=== PATIENT | female | born 1995 | race Caucasian/White ===

== ENCOUNTER 2018-12-31 18:22 | Emergency (ER) | payer SELFPAY ==
[~2018-12-31] VITALS: Ht 162.6 cm; Wt 54.4 kg
[2018-12-31 18:39] VITALS: BP 116/79
--- OUTSIDE RECORDS SUMMARY | 2018-12-31 18:46 | XMS REPORT | Continuity of Care Document ---
Author Author Beatriz [facility] Floridatangela Lilly [facility] Address Unknown Phone Unavailable Support Name Relationship Address Phone SUSHMA LYNNE M.D. Caregiver [address] [place] [address] Unavailable ROBEREDWINA MURCIAWE A D.O. Caregiver [address] [place] [address] Unavailable ROBER, SKINNY A D.O. Caregiver [address] [place] [address] Unavailable KEVIN BOOGIE Next Of Kin [address] [place], [place] [id number] Care Team Providers Care Occ Therapy Asst Name Role Phone SUSHMA LYNNE M.D. PCP Insurance Providers Guarantor Elan Boogie Address [address] [place] [address] Payer [employer] Policy Number [id number] Subscriber's Name Vincenzo Castle Relationship 01 Self / Same As Patient Effective Date 16 Advance Directives Directive Response Recorded Date/Time Patient Resuscitation Status Full Code 11/12/16 3:30am Chief Complaint and Reason for Visit Chief Complaint INDUCTION Reason for Visit Screening, , for anatomic survey Problems Active Problems Medical Problem Onset Date Status Abnormality on screening test Unknown Encounter for supervision of normal first in third trimester Unknown Encounter for supervision of normal Unknown Initial obstetric visit in third trimester Unknown Insufficient antepartum care Unknown Intrauterine in teenager Unknown Noncompliant patient in third trimester Unknown Polyhydramnios in third trimester Unknown Post-dates Unknown care in third trimester Unknown Screening for STD (sexually transmitted disease) Unknown Screening, , for anatomic survey Unknown Medications Current Home Medications Medication Dose Units Route Directions Days Qty Instructions Start Date Acetaminophen/Codeine (Tylenol #3) 300-30 Mg Tab 1-2 Ea Oral Every 4 Hours as needed for Pain 24 Tablet 11/13/16 Docusate Sodium (Colace) 100 Mg Cap 100 Mg Oral Twice A Day for Constipation 30 Days 60 Capsule 11/13/16 Ferrous Sulfate 325 Mg Tab 325 Mg Oral Twice A Day for Iron Suppliment 90 Days 180 Tablet 10/01/16 Vit W/ Ferrous Fumara () Tab 1 Tab Oral Daily Past Home Medications Medication Directions Ordered Status Nitrofurantoin Monohyd Macro (Macrobid) 100 Mg Cap, 100 Mg Oral Twice A Day for Bacteriuria 10/30/16 Discontinued Social History Social History Problem Response Recorded Date/Time Onset Date Status Hx Alcohol Use No 11/12/2016 12:16am Not Applicable Not Applicable Hx Substance Use No 09/30/2016 10:34am Not Applicable Not Applicable Smoking Status Current every day smoker 11/12/2016 12:04am Not Applicable Not Applicable Query Response Start Date Stop Date Smoking Status Current every day smoker Hospital Discharge Instructions Medication Information Medication information Medications taken today: Iron- 8:21 am Ibuprofen- 8:21 am Tylenol #3- 3:36 pm Medication Instructions: Iron 325mg 1 tablet daily Ibuprofen 800mg 1 tablet by mouth every 8 hours as needed for cramps Tylenol #3 1-2 tablets by mouth every 4 hours as needed for pain Discharge Instructions Nursing Instructions Follow up Appointment #1 Call for Appointment: No Scheduled Date: 11/20/16 Scheduled Time: 12:00pm Diet: As Tolerated Activity: As Tolerated Plan of Care Discharge Date 11/13/16 4:32pm Disposition 01 HOME, SELF-CARE Instructions/Education Provided OBG Prescriptions See Medication Section Care Plan and Goals See Discharge Instructions Section Functional Status Query Response Date Recorded Toileting Ability/Staff Support Independ/No setup help November 13, 2016 10:00am Oral Care Ability/Staff Support Activity did not occur November 13, 2016 10:00am Upper Body Dressing Ability/Staff Support Independ/No setup help November 13, 2016 10:00am Lower Body Dressing Ability/Staff Support Independ/No setup help November 13, 2016 10:00am Allergies, Adverse Reactions, Alerts No known allergies. Immunizations Immunization Event Date Type Not Given Reason Dose Number Lot Number Supervisor Dials Influenza, IM, quadrivalent, pres free,=>3yr 10/01/16 Administered 1 MMR 11/13/16 Administered 1 [id number] [employer] [facility] [employer] Pneumococcal polysaccharide PPV23 11/13/16 Administered 1 [id number] [facility] Tetanus/Diphtheria/Pertussis (age >=7) 10/01/16 Administered 1 Query Response on File Recorded Date/Time Pneumonia Vaccine Received No 11/12/16 12:04am Vital Signs Acute Vital Signs Vital Response Date/Time Blood Pressure 103/63 mm Hg 11/13/2016 4:00pm Blood Pressure Mean 77 mm Hg 11/12/2016 5:00am Blood Pressure Mean 76 mm Hg 11/13/2016 4:00pm Temperature (Fahrenheit) 97.8 degrees F (96.0 - 99.9) 11/13/2016 4:00pm Temperature (Calculated Celsius) 36.02481 degrees C 11/13/2016 4:00pm Temperature (Calculated Celsius) 37.77975 degrees C (36.4 - 37.5) 11/12/2016 5:00am Temperature (Fahrenheit) 98.6 degrees F (96.0 - 99.9) 11/12/2016 5:00am Temperature Source Oral 11/13/2016 4:00pm Pulse Pulse Rate (adult) 81 bpm (60 - 100) 11/13/2016 4:00pm Pulse Rate (adult) 90 bpm (60 - 100) 11/12/2016 5:00am Respiratory Rate 18 breaths per minute (10 - 20) 11/13/2016 4:00pm Respiratory Rate 16 bpm (10 - 20) 11/12/2016 4:15am Height (Feet) 5 ft 11/12/2016 12:16am Height (Inches) 4.0 in. 11/12/2016 12:16am Weight (Pounds) 144.0 lbs 11/12/2016 12:16am Height 5 ft 4 in 11/12/2016 12:16am Weight 144 lb 11/12/2016 12:16am Body Mass Index 24.7 kg/m^2 11/12/2016 12:16am Ambulatory Vital Signs Vital Response Date/Time Height 5 ft 3.750 in 11/06/2016 3:28pm Weight 139 lbs 11/06/2016 3:28pm Blood Pressure, Sitting, Left Arm 111/70 mm Hg 11/06/2016 3:28pm Pulse Rate 81 bpm 11/06/2016 3:28pm Body Surface Area 1.69 m2 11/06/2016 3:28pm Body Mass Index 24.0 kg/m2 11/06/2016 3:28pm Pulse Oximetry Pulse Oximetry 11/06/2016 3:28pm Results Laboratory Results Test Name Result Units Flags Reference Collection Date/Time Result Date/ Time Comments Urine WBC Clumps 0-1 /hpf NONE 09/30/2016 8:08am 09/30/2016 8:48am Urine Amorphous Sediment 1+ 09/30/2016 8:08am 09/30/2016 8:48am Rubella Antibody, Quantitative 12.7 IU/ml L 15-500 09/30/2016 8:08am 11:32am INTERPRETATION: <10 IU/ml INDICATES LACK OF IMMUNE STATUS. 10 - 15 IU/ml INDICATES IMMUNE STATUS IS INDETERMINANT. >15 IU/ml INDICATES IMMUNITY. HIV-1 Antibody NEGATIVE NEGATIVE 09/30/2016 8:08am 09/30/2016 8:55am Hepatitis B Surface Antigen Negative Negative 09/30/2016 8:08am 09/30 10:43pm Hepatitis B Surface Antigen performed at [facility] Reference Lab, [address] [place] [address] Cow Tender Jonathan Brown DO Rapid Plasma Reagin Non-reactive Non-reactiv 09/30/2016 8:08am 2015 11:25pm RPR performed at [facility] Reference Lab, [address] [place] [address] Cow Tender Jonathan Brown DO Fasting Glucose 85 mg/dL 65-115 10/06/2016 8:35am 10/06/2016 8:58am Glucose 1 Hour 159 mg/dL 10/06/2016 10:02am 10/06/2016 10:34am Glucose 2 Hour 144 mg/dL 10/06/2016 11:01am 10/06/2016 11:52am Glucose 3 Hour 103 mg/dL 10/06/2016 11:58am 10/06/2016 12:21pm Urine Fasting Glucose NEGATIVE mg/dL NEGATIVE 10/06/2016 8:38am 2016 9:03am THIS PATIENT ALSO HAS: 3+ LE(LEUKOCYTE ESTERASE) AND TRACE BLOOD SUGGESTIVE OF A UTI Urine Glucose 1 Hour NEGATIVE mg/ml NEGATIVE 10/06/2016 10:02am 2016 10:33am THIS PATIENT HAS: CLOUDY URINE, 3+ LE AND TRACE BLOOD SUGGESTIVE OF A UTI, SHOULD FOLLOW WITH A REGUAR UA AND CULTURE/SENSITIVITY. Urine Glucose 2 Hour TRACE mg/ml NEGATIVE 10/06/2016 11:10am 2016 11:59am LE=3+ BLOOD=TRACE Urine Glucose 3 Hour TRACE mg/ml NEGATIVE 10/06/2016 11:59am 2016 12:27pm Urine RBC 1-3 /hpf H NONE 10/23/2016 4:08pm 10/23/2016 6:03pm Urine WBC 10-25 /hpf H NONE 10/23/2016 4:08pm 10/23/2016 6:03pm THIS SPECIMEN MEETS MEDICAL STAFF CRITERIA FOR A URINE CULTURE. A CULTURE HAS BEEN SET. Urine Epithelial Cells >100 /lpf 10/23/2016 4:08pm 10/23/2016 6:03pm CLUE CELLS OBSERVED Urine Bacteria 2+ /hpf H NONE 10/23/2016 4:08pm 10/23/2016 6:03pm THIS SPECIMEN MEETS MEDICAL STAFF CRITERIA FOR A URINE CULTURE. A CULTURE HAS BEEN SET. Membranes Rupture NEGATIVE 11/06/2016 4:25pm 11/06/2016 4: 40pm White Blood Count 12.8 K/uL H 5.0-10.0 11/11/2016 2:30pm 11/11/2016 3: 36pm Red Blood Count 3.31 M/uL L 4.20-5.40 11/11/2016 2:30pm 11/11/2016 3: 36pm Hemoglobin 9.5 g/dL L 12.0-16.0 11/12/2016 1:40pm 11/12/2016 2:08pm Hematocrit 28.3 % L 38.0-47.0 11/12/2016 1:40pm 11/12/2016 2:08pm Mean Corpuscular Volume 90.9 fL 82.0-100.0 11/11/2016 2:30pm 2016 3:36pm Mean Corpuscular Hemoglobin 31.1 pg 26.0-33.0 11/11/2016 2:30pm 2016 3:36pm Mean Corpuscular Hemoglobin Concent 34.2 g/dL 31.0-36.0 11/11/2016 2: 30pm 11/11/2016 3:36pm Red Cell Distribution Width 13.8 % 11.5-14.5 11/11/2016 2:30pm 2016 3:36pm RDW Standard Deviation 46.0 fL 36.4-46.3 11/11/2016 2:30pm 11/11/2016 3 :36pm Platelet Count 153 K/uL 130-400 11/11/2016 2:30pm 11/11/2016 3:36pm Mean Platelet Volume 12.7 fL H 7.0-11.0 11/11/2016 2:30pm 11/11/2016 3: 36pm Neutrophils (%) (Auto) 82.8 % H 42.0-75.0 11/11/2016 2:30pm 11/11/2016 3 :36pm Lymphocytes (%) (Auto) 7.8 % L 16.0-44.0 11/11/2016 2:30pm 11/11/2016 3: 36pm Monocytes (%) (Auto) 7.2 % 2.0-9.0 11/11/2016 2:30pm 11/11/2016 3:36pm Eosinophils (%) (Auto) 1.0 % 0-7.0 11/11/2016 2:30pm 11/11/2016 3:36pm Basophils (%) (Auto) 0.3 % 0-1 11/11/2016 2:30pm 11/11/2016 3:36pm Immature Granulocyte % (Auto) 0.9 % H 0-0.5 11/11/2016 2:30pm 2016 3:36pm Nucleated Red Blood Cells % 0.0 /100WBC 0-0 11/11/2016 2:30pm 2016 3:36pm Neutrophils # (Auto) 10.6 K/uL H 1.9-8.0 11/11/2016 2:30pm 11/11/2016 3: 36pm Lymphocytes # (Auto) 1.0 K/uL 0.9-5.2 11/11/2016 2:30pm 11/11/2016 3: 36pm Monocytes # (Auto) 0.9 K/uL 0.16-1.0 11/11/2016 2:30pm 11/11/2016 3: 36pm Eosinophils # (Auto) 0.1 K/uL 0-0.8 11/11/2016 2:30pm 11/11/2016 3: 36pm Basophils # (Auto) 0.0 K/uL 0-0.2 11/11/2016 2:30pm 11/11/2016 3:36pm Immature Granulocyte # (Auto) 0.12 K/uL 0-0.40 11/11/2016 2:30pm 2016 3:36pm Nucleated Red Blood Cells # 0.00 K/uL 0.0-0.012 11/11/2016 2:30pm 11/11 3:36pm Urine Color YELLOW 11/11/2016 3:00pm 11/11/2016 4:18pm Urine Appearance HAZY 11/11/2016 3:00pm 11/11/2016 4:18pm Urine Glucose (UA) NEGATIVE NEGATIVE 11/11/2016 3:00pm 11/11/2016 4: 18pm Urine Bilirubin NEGATIVE NEGATIVE 11/11/2016 3:00pm 11/11/2016 4: 18pm Urine Ketones NEGATIVE NEGATIVE 11/11/2016 3:00pm 11/11/2016 4:18pm Urine Specific [place] <=1.005 1.005-1.030 11/11/2016 3:00pm 2016 4:18pm Urine Occult Blood NEGATIVE NEGATIVE 11/11/2016 3:00pm 11/11/2016 4: 18pm Urine pH 7.0 4.5-8.0 11/11/2016 3:00pm 11/11/2016 4:18pm Urine Protein NEGATIVE NEGATIVE 11/11/2016 3:00pm 11/11/2016 4:18pm Urine Urobilinogen 0.2 E.U./dL 0.2-1.0 11/11/2016 3:00pm 11/11/2016 4: 18pm Urine Nitrate NEGATIVE NEGATIVE 11/11/2016 3:00pm 11/11/2016 4:18pm Urine Leukocyte Esterase 1+ H NEGATIVE 11/11/2016 3:00pm 11/11/2016 4: 18pm DOA COLLECTION DOA COLLECTION 11/11/2016 3:00pm 11/12/2016 4:07pm Urine Amphetamines Screen Negative NEGATIVE 11/11/2016 3:00pm 2016 4:18pm Urine Methamphetamines Screen Negative NEGATIVE 11/11/2016 3:00pm 05/2017 4:18pm Urine Barbiturates Screen Negative NEGATIVE 11/11/2016 3:00pm 2016 4:18pm Urine Benzodiazepines Screen Negative NEGATIVE 11/11/2016 3:00pm 05/2017 4:18pm Urine Cocaine Screen Negative NEGATIVE 11/11/2016 3:00pm 11/11/2016 4 :18pm Urine Methadone Screen Negative NEGATIVE 11/11/2016 3:00pm 2016 4:18pm Urine Opiates Screen Negative NEGATIVE 11/11/2016 3:00pm 11/11/2016 4 :18pm Urine Phencyclidine Screen Negative NEGATIVE 11/11/2016 3:00pm 2016 4:18pm Urine Propoxyphene Screen Negative NEGATIVE 11/11/2016 3:00pm 2016 4:18pm Ur Tetrahydrocannabinol (THC) Scrn Negative NEGATIVE 11/11/2016 3: 00pm 11/11/2016 4:18pm Ur Tricyclic Antidepressants Screen Negative NEGATIVE 11/11/2016 3: 00pm 11/11/2016 4:18pm Amphetamine Level SEE SEPARATE REPORT 11/11/2016 2:30pm 11/12/2016 3:30am Cocaine & Metabolite Level SEE SEPARATE REPORT 11/11/2016 2:30pm 3:30am Carboxy THC (GC/MS) SEE SEPARATE REPORT 11/11/2016 2:30pm 2016 3:30am Opiates (GC/MS) SEE SEPARATE REPORT 11/11/2016 2:30pm 11/12/2016 3: 30am Heroin Level SEE SEPARATE REPORT 11/11/2016 2:30pm 11/12/2016 3: 30am Phencyclidine (PCP) Level SEE SEPARATE REPORT 11/11/2016 2:30pm 06/2017 3:30am Benzodiazepines (GC/MS) SEE SEPARATE REPORT 11/11/2016 2:30pm 11/12 3:30am Barbiturates (GC/MS) SEE SEPARATE REPORT 11/11/2016 2:30pm 2016 3:30am Urine Drug Screen Other SEE SEPARATE REPORT 11/11/2016 2:30pm 11/12 3:30am Urine Drug Screen Other SEE SEPARATE REPORT 11/11/2016 2:30pm 11/12 3:30am Drug Screen Company Name SEE SEPARATE REPORT 11/11/2016 2:30pm 06/2017 3:30am Urine Drug Screen Reason SEE SEPARATE REPORT 11/11/2016 2:30pm 06/2017 3:30am Drug Screen Social Security Number SEE SEPARATE REPORT 11/11/2016 2: 30pm 11/12/2016 3:30am Microbiology Results Procedure Source Organism/Result Collection Date/Time Result Date/Time Result Status Urine Culture Urine,Clean Catch >100,000 CFU/ML MIXED BODY [place] AFTER 2 DAYS 10/23/2016 4:08pm 10/25/2016 11:25am Final Ambulatory Laboratory Results Test Name Result Units Flags Reference Result Date/Time Comments Chlamydia/GC Screen NEG/NEG 10/06/2016 1:05pm Procedures No known history of procedures. Encounters Encounter Location Arrival/Admit Date Discharge/Depart Date Attending Provider Discharged Inpatient [facility] 11/11/16 6:30pm 11/13/16 4 :32pm SKINNY BILLINGS A D.O. Departed Clinic [facility] 11/06/16 4:06pm 11/06/16 5: 20pm ROBEREDWINA MURCIAWE A D.O. Office Visit SKINNY A ROBER 11/06/16 3:30pm ROBERSKINNY MURCIA A D.O. Registered Practice [facility] 11/06/16 3:30pm ROBERSKINNY A D.O. Office Visit SKINNY A ROBER 11/06/16 3:00pm ROBEREDWINA MURCIAWE A D.O. Departed Clinic [facility] 11/03/16 1:12pm 11/03/16 2: 49pm ROBEREDWINA MURCIAWE A D.O. Departed Clinic [facility] 10/30/16 3:08pm 10/30/16 4: 30pm ROBEREDWINAWE A D.O. Office Visit SKINNY A ROBER 10/30/16 3:00pm ROBER, SKINNY A D.O. Office Visit SKINNY A ROBER 10/30/16 2:45pm ROBERSKINNY MURCIA A D.O. Registered Referred [facility] 10/23/16 4:05pm ROBER , SKINNY A D.O. Office Visit SKINNY A ROBER 10/23/16 4:00pm ROBER, SKINNY A D.O. Office Visit SKINNY A ROBER 10/23/16 3:30pm ROBER SKINNY A D.O. Office Visit SKINNY A ROBER 10/12/16 2:00pm ROBER SKINNY A D.O. Office Visit SKINNY A ROBER 10/06/16 1:00pm ROBER, SKINNY A D.O. Registered Referred [facility] 10/06/16 8:26am ROBER EDWINAWE A D.O. Office Visit SKINNY A ROBER 09/30/16 10:15am ROBER SKINNY A D.O. Office Visit SKINNY A ROBER 09/30/16 9:30am ROBEREDWINA MURCIAWE A D.O. Registered Referred [facility] 09/30/16 7:59am ROBER , SKINNY A D.O. Recent Diagnosis Screening, , for anatomic survey
--- OUTSIDE RECORDS SUMMARY | 2018-12-31 18:46 | XMS REPORT | Referral Summary ---
Author Author [facility] Organization [facility] Address Unknown Phone Unavailable Care Team Providers Care Scallop Cutter Machine Name Role Phone No PCP, Pt States PCP Encounter VC Date(s): 03/31/16 - 04/01/16 [facility] [address] [place] [address] Discharge Diagnosis: Abdominal pain Discharge Diagnosis: Discharge Disposition: 01-Home or Self Care Attending Physician: Mehdi Springer MD Admitting Physician: Mehdi Springer MD Vital Signs Most recent to 1 oldest [Reference Range]: Temperature Oral 37.1 degC [35.8-37.3 degC] (03/31/16 9:16 PM) Peripheral Pulse 78 bpm Rate [60-100 bpm] (04/01/16 1:38 AM) Respiratory Rate 18 br/min [14-20 br/min] (04/01/16 1:38 AM) Blood Pressure 118/78 mmHg [90-140/60-90 mmHg] (04/01/16 1:38 AM) SpO2 99 % (04/01/16 1:38 AM) Problem List No Known Problems Allergies, Adverse Reactions, Alerts No Known Medication Allergies Medications Augmentin 875 mg-125 mg oral tablet 1 tabs, Oral, q12hr, X 10 days, # 20 tabs, 0 Refill(s) Start Date: 03/25/16 Stop Date: 04/04/16 Status: Ordered [place] 5 mg-325 mg oral tablet 1 tabs, Oral, q6hr, as needed for pain, # 12 tabs, 0 Refill(s) Start Date: 03/25/16 Status: Ordered Zofran 4 mg oral tablet 4 mg 1 tabs, Oral, q6hr, Nausea or Vomiting | as needed for nausea/vomiting, X 5 days, # 20 tabs, 0 Refill(s) Start Date: 04/01/16 Stop Date: 04/06/16 Status: Ordered Results Hematology Most recent to 1 oldest [Reference Range]: WBC [4.8-10.8 9.1 10*3/uL 10*3/uL] (03/31/16 11:15 PM) RBC [4.00-5.20] 4.69 (03/31/16 11:15 PM) Hgb [12.0-16.0 14.2 gm/dL gm/dL] (03/31/16 11:15 PM) Hct [37.0-47.0 %] 40.8 % (03/31/16 11:15 PM) MCV [82.0-99.0 fL] 87.0 fL (03/31/16 11:15 PM) MCH [27.0-32.0 pg] 30.3 pg (03/31/16 11:15 PM) MCHC [32.0-36.0 34.8 gm/dL gm/dL] (03/31/16 11:15 PM) RDW [11.5-14.5 %] 12.3 % (03/31/16 11:15 PM) Platelet [150-400 211 10*3/uL 10*3/uL] (03/31/16 11:15 PM) MPV [9.4-12.4 fL] 11.6 fL (03/31/16 11:15 PM) Immature 0.1 % Granulocytes (03/31/16 11:15 PM) [0.0-1.0 %] Neutrophils [51-75 59 % %] (03/31/16 11:15 PM) Lymphocytes [20-46 29 % %] (03/31/16 11:15 PM) Monocytes [4-11 %] 11 % (03/31/16 11:15 PM) Eosinophils [0-4 %] 1 % (03/31/16 11:15 PM) Basophils [0-2 %] 0 % (03/31/16 11:15 PM) Neutro Absolute 5.38 10*3 [1.90-7.00 10*3] (03/31/16 11:15 PM) Lymph Absolute 2.68 10*3 [0.80-3.30 10*3] (03/31/16 11:15 PM) [place] Absolute 0.96 10*3 [0.30-1.00 10*3] (03/31/16 11:15 PM) Eos Absolute 0.06 10*3 [0.00-0.50 10*3] (03/31/16 11:15 PM) Baso Absolute 0.02 10*3 [0.00-0.20 10*3] (03/31/16 11:15 PM) Nucleated RBC 0.0 /100 WBC Automated [0 /100 (03/31/16 11:15 PM) WBC] Chemistry Most recent to 1 oldest [Reference Range]: Sodium Lvl [136-144 136 mEq/L mEq/L] (03/31/16 11:15 PM) Potassium Lvl 3.3 mEq/L [3.6-5.1 mEq/L] *LOW* (03/31/16 11:15 PM) Chloride [99-109 102 mEq/L mEq/L] (03/31/16 11:15 PM) CO2 [22-32 mEq/L] 26 mEq/L (03/31/16 11:15 PM) AGAP [3-20] 8 (03/31/16 11:15 PM) BUN [4-20 mg/dL] 7 mg/dL (03/31/16 11:15 PM) Glucose Lvl [70-100 90 mg/dL mg/dL] (03/31/16 11:15 PM) Creatinine Lvl 0.65 mg/dL [0.44-1.03 mg/dL] (03/31/16 11:15 PM) eGFR [>60] >60 1 (03/31/16 11:15 PM) Calcium Lvl 9.6 mg/dL [8.6-10.0 mg/dL] (03/31/16 11:15 PM) Albumin Lvl [3.5-4.8 4.3 gm/dL gm/dL] (03/31/16 11:15 PM) Total Protein 7.9 gm/dL [6.1-7.9 gm/dL] (03/31/16 11:15 PM) Globulin [1.9-4.3 3.6 gm/dL gm/dL] (03/31/16 11:15 PM) ALT [14-54 U/L] 17 U/L (03/31/16 11:15 PM) AST [15-41 U/L] 22 U/L (03/31/16 11:15 PM) Alk Phos [26-104 76 U/L U/L] (03/31/16 11:15 PM) Bili Total [0.2-1.2 0.6 mg/dL 2 mg/dL] (03/31/16 11:15 PM) Lipase Lvl [8-48 26 U/L U/L] (03/31/16 11:15 PM) U Beta hCG Ql Pos (03/31/16 9:39 PM) [place] [id number] mIU/mL 3 (03/31/16 11:15 PM) 1Result Comment: Multiply eGFR results by 1.21 for race. 2Result Comment: Naproxen, specifically the metabolite O-desmethylnaproxen, may cause spurious elevation in Total Bilirubin levels. 3Result Comment: Normal Ranges for Quantitative Beta-HCG are as follows: Non- Females: 0 - 5 Gestation Wks 95% Range 0.2 - 1 4 - 50 1 - 2 50 - 500 2 - 3 100 - 5000 3 - 4 500 - 10,000 4 - 5 1,000 - 50,000 5 - 6 10,000 - 100,000 6 - 8 15,000 - 200,000 8 - 12 10,000 - 100,000 Urinalysis Most recent to 1 oldest [Reference Range]: UA Color Yellow (03/31/16 9:36 PM) UA Appear Cloudy *ABN* (03/31/16 9:36 PM) UA pH [5.0-8.0] 7.0 (03/31/16 9:36 PM) UA Leuk Est Pos 1+ [Negative] *ABN* (03/31/16 9:36 PM) UA Nitrite Negative [Negative] (03/31/16 9:36 PM) UA Protein Negative [Negative] (03/31/16 9:36 PM) UA Glucose Negative [Negative] (03/31/16 9:36 PM) UA Ketones Negative [Negative] (03/31/16 9:36 PM) UA Urobilinogen Negative [<1.0] (03/31/16 9:36 PM) UA Bili [Negative] Negative (03/31/16 9:36 PM) UA Blood [Negative] Negative (03/31/16 9:36 PM) UA Spec Grav 1.005 [1.003-1.030] (03/31/16 9:36 PM) Type Catheter (03/31/16 9:36 PM) UA WBC [0-4] 0-2 (03/31/16 9:36 PM) UA RBC [0-2] 5-10 *ABN* (03/31/16 9:36 PM) Epithelial Cells 5-10 (03/31/16 9:36 PM) UA Bacteria Rare (03/31/16 9:36 PM) Crystals Ca Ox (03/31/16 9:36 PM) Immunizations No data available for this section Procedures No data available for this section Social History Social History Type Response Smoking Status Current every day smoker; Tobacco use per day: Pack Assessment and Plan No data available for this section"
--- OUTSIDE RECORDS SUMMARY | 2018-12-31 18:47 | XMS REPORT | Continuity of Care Document ---
Author Author [facility] Address Unknown Phone Unavailable Allergies Active Description Code Type Severity Reaction Onset Reported/Identified Relationship to Patient Clinical Status Yes No Known Medication Allergies NKMA N/A N/A 03/25/2016 Medications Medication Packaging Start Date Stop Date Route Dosage Sig HYDROcodone-acetaminophen([place] 5 mg-325 mg oral tablet) 1 tabs 03/25/2016 Oral 1 tabs, Oral, q6hr, PRN: as needed for pain, 12 tabs , 0 Refill(s) amoxicillin-clavulanate(Augmentin 875 mg-125 mg oral tablet) 1 tabs 03/25/2016 04/04/2016 Oral 1 tabs, Oral, q12hr, for 10 days, 20 tabs, 0 Refill(s) ondansetron(Zofran 4 mg oral tablet) 1 tabs 04/01/2016 04/06/2016 Oral 4 mg as needed for nausea/vomiting, X 5 days, # 20 tabs, 0 Refill (s) 4 mg=1 tabs, Oral, q6hr, for 5 days, PRN: Nausea or Vomiting as needed for nausea/vomiting, 20 tabs, 0 Refill(s) Problems Date Dx Coded Attending Type Code Diagnosis Diagnosed By 03/30/2016 Springer Howard Reason L03.011 Cellulitis of right finger 04/03/2016 Springer Howard Final O26.891 Other specified related conditions, first trimester 04/03/2016 Springer Howard Reason R10.84 Generalized abdominal pain 04/03/2016 Springer Howard Final Z3A.08 8 weeks gestation of Procedures There is no data. Results Test Result Range Urinalysis with reflex microscopic - 03/31/16 21:36 Appearance Cloudy NA Bilirubin Negative NA Negative Blood Negative NA Negative Color Yellow NA Glucose, Urine Negative Negative Ketones Negative Negative Leukocyte Esterase Pos 1+ NA Negative Nitrites Negative NA Negative pH 7.0 NA 5.0-8.0 Protein Negative NA Negative Specific [place] 1.005 NA 1.003-1.030 UA Collection type Catheter NA Urobilinogen Negative mg/dL <1.0 Urine Microscopic - 03/31/16 21:36 Bacteria Rare NA Crystals Ca Ox NA Epithelial Cells 5 /HPF RBC, Urine 5 /HPF 0-2 WBC, Urine 0 /HPF 0-4 CBC With Platelet and Differential - 03/31/16 23:15 Absolute Basophils 0.02 10*3 0.00-0.20 Absolute Eosinophils 0.06 10*3 0.00-0.50 Absolute Lymphocytes 2.68 10*3 0.80-3.30 Absolute Monocytes 0.96 10*3 0.30-1.00 Absolute Neutrophils 5.38 10*3 1.90-7.00 Basophils 0 % 0-2 Eosinophils 1 % 0-4 HCT 40.8 % 37.0-47.0 HGB 14.2 g/dL 12.0-16.0 Immature Granulocytes 0.1 % 0.0-1.0 Lymphocytes 29 % 20-46 MCH 30.3 pg 27.0-32.0 MCHC 34.8 g/dL 32.0-36.0 MCV 87.0 fL 82.0-99.0 Monocytes 11 % 4-11 MPV 11.6 fL 9.4-12.4 Neutrophils 59 % 51-75 Nucleated RBC Automated 0.0 /100 WBC Platelet Count 211 K/uL 150-400 RBC 4.69 10*6/uL 4.00-5.20 RDW 12.3 % 11.5-14.5 WBC 9.1 K/uL 4.8-10.8 Comprehensive Metabolic Panel (CMP) - 03/31/16 23:15 Albumin 4.3 g/dL 3.5-4.8 Alkaline Phosphatase 76 U/L 26-104 ALT (SGPT) 17 U/L 14-54 Anion Gap 8 NA 3-20 AST (SGOT) 22 U/L 15-41 Bilirubin Total 0.6 mg/dL 0.2-1.2 BUN 7 mg/dL 4-20 Calcium 9.6 mg/dL 8.6-10.0 Chloride 102 mEq/L 99-109 CO2 26 mEq/L 22-32 Creatinine 0.65 mg/dL 0.44-1.03 Globulin 3.6 g/dL 1.9-4.3 Glucose 90 mg/dL 70-100 Potassium 3.3 mEq/L 3.6-5.1 Protein 7.9 g/dL 6.1-7.9 Sodium 136 mEq/L 136-144 Lipase - 03/31/16 23:15 Lipase 26 U/L 8-48 eGFR - 03/31/16 23:15 eGFR >60 NA >60 HCG Quantitative - 03/31/16 23:15 HCG Quantitative 84015 mIU/mL BETA HCG - 12/31/17 15:23 COMPLETE BLOOD COUNT - 12/31/17 15:23 WBC 6.31 K/uL 4.00-12.00 RBC 4.38 M/uL 4.20-5.40 HEMOGLOBIN 12.6 g/dL 12.0-16.0 HCT 37.7 % 37.0-47.0 MCV 86.1 fL 80.0-95.0 MCH 28.8 PG 24.0-31.0 MCHC 33.4 g/dL 21.0-36.0 PLATELET COUNT 223 K/uL 150-400 RDW-CV 14.1 % 11.5-14.5 MPV 11.9 fL 6.9-10.6 NEUT % 55.9 % 55.0-70.0 LYMPH % 35.0 % 20.0-40.0 MONO% 7.8 % 2.0-8.0 EOS% 1.0 % 0.0-4.0 BASO% 0.3 % 0.0-1.0 NEUT # 3.53 K/uL 2.75-7.00 LYMPH# 2.21 K/uL 0.60-3.40 MONO# 0.49 K/uL 0.00-0.70 EOS # 0.06 K/uL 0.00-0.40 BASO # 0.02 K/uL 0.00-0.10 COMP METABOLIC PROFILE - 12/31/17 15:37 GLUCOSE 101 mg/dL 74-106 BUN 9 mg/dL 7-18 CREATININE 0.83 mg/dL 0.60-1.00 SODIUM, SERUM 139 mmol/L 136-145 POTASSIUM 3.6 mmol/L 3.5-5.1 CHLORIDE 103 mmol/L 98-107 CARBON DIOXIDE 26.0 mmol/L 21.0-32.0 BUN / CREAT RATIO 10.8 CALC 10.0-25.0 ANION GAP 13.6 mmol/L 8.0-20.0 CALCIUM 9.6 mg/dL 8.5-10.1 TOTAL PROTEIN 7.6 g/dL 6.4-8.2 ALBUMIN 4.0 g/dL 3.4-5.0 GLOBULIN 3.6 g/dL 1.9-3.7 A/G RATIO 1.1 RATIO 1.1-2.2 AST (SGOT) 13 U/L 15-37 ALT (SGPT) 15 U/L 12-78 ALKALINE PHOSPHATASE 95 mg/dL 46-116 TOTAL BILIRUBIN 0.2 mg/dL 0.2-1.0 GFR >60 >=60 GFR >60 >=60 OSMOLALITY 276 NRG BETA HCG - 12/31/17 15:57 BETA HCG <1.0 mIU/mL 0.0-6.0 Encounters ACCT No. Visit Date/Time Discharge Status Pt. Type Provider Facility Loc./Unit Complaint [id number] 12/31/2017 14:16:00 12/31/2017 17:12:00 DIS Emergency [facility] 4 excessive bleeding [id number] 12/31/2017 16:24:00 Document Registration [id number] 03/31/2016 21:04:00 Document Registration [id number] 03/31/2016 21:04:00 04/01/2016 01:39:00 DIS Emergency [facility] ED Abd Pain, vomiting , [id number] 03/25/2016 20:25:00 03/25/2016 21:50:00 DIS Emergency Springer Howard [facility] ED R thumb pain [id number] 04/01/2016 05:17:49 Document Registration [id number] 03/26/2016 05:17:33 Document Registration
== END 2018-12-31 19:31 | disposition left against medical advice (07) ==
LOC: ER 18:25
DX: R11.10 Vomiting, unspecified (principal); R10.9 Unspecified abdominal pain
CPT/HCPCS: 99281